=== PATIENT | female | born 1965 | race Caucasian/White ===

== ENCOUNTER 2016-12-11 17:10 | Emergency (ER) | payer OTHER ==
[~2016-12-11] VITALS: Ht 162.6 cm; Wt 68.0 kg
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
--- NOTE | ~2016-12-11 | EKG ---
PATIENT: PEACE VENTURA UNIT #: [id number] Ventricular Rate: 88 BPM Atrial Rate: 88 BPM P-R Interval: 144 ms QRS Duration: 74 ms Q-T Interval: 374 ms QTC Calculation(Bezet): 452 ms P [place]: 34 degrees Calculated R [place]: 59 degrees Calculated T [place]: 52 degrees Diagnosis Line: Normal sinus rhythm Diagnosis Line: Normal ECG Diagnosis Line: No previous ECGs available Diagnosis Line: Confirmed by EDWARD COWAN MD ([id number]) on 12/12/2016 Diagnosis Line: 2:03:51 PM INTERPRETING MD: CAMRYN LE
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
[~2016-12-11 17:10] MED LIST: AMITRYPTYLINE PO; AMOXICILLIN PO; CELEBREX PO; CLINORIL PO; CYMBALTA PO; DELSYM30 MG/5 ML PO; EFFEXOR XR PO; FLEXERIL PO; GLUCOPHAGE XR500 MG PO; LYRICA PO; NORCO 5/325 TAB1 TAB PO; PROZAC PO; RELPAX40 MG PO; ROBAXIN PO; SINEMET-25/1001 TAB PO; SYNTHROID PO; ULTRAM PO; [UNRECOGNIZED DRUG - REMARK]
== END 2016-12-11 19:15 | disposition home or self-care (01) ==
LOC: CED 17:10
DX: S80.01XA Contusion of right knee, initial encounter (principal); S20.219A Contusion of unspecified front wall of thorax, initial encounter; E11.9 Type 2 diabetes mellitus without complications; Z88.8 Allergy status to other drugs, medicaments and biological substances; V49.00XA Driver injured in collision with unspecified motor vehicles in nontraffic accident, initial encounter; Y92.410 Unspecified street and highway as the place of occurrence of the external cause
CPT/HCPCS: 71020; 73562; 93005; 99284